=== PATIENT | male | born 1970 | race Caucasian/White ===

== ENCOUNTER 2016-12-22 17:22 | Emergency (ER) | payer OTHER ==
[2016-12-22 17:34] VITALS: BP 124/72; PULSE 88; RESP 18; TEMP 97.9
[2016-12-22] MEDS ORDERED: HYDROmorphone 1 MG/ML 1 ML SYRINGE IM STA (18:06)
--- NOTE | 2016-12-22 18:06 | ED ---
Back Pain HPI - General Chief Complaint: Back Pain/Injury Stated Complaint: strained muscle Time Seen by Provider: 12/22/16 17:49 Source: patient, RN notes reviewed Limitations: no limitations - History of Present Illness Initial Comments: Patient is a 46-year-old male chief complaint of lower groin pain for approximately 8 hours. Patient reports that he was flipping a coffee table and noticed a pulling sensation over his groin area. Patient reports that he has no testicular pain. He reports that he was seen in the [facility] earlier today was given one [place] while they're in a scrotal ultrasound. There is no evidence of hernia or testicular torsion. reports he also received x- rays and there were no acute process. Patient states that he does have chronic lower back pain. He reports that he has been able to have a bowel movement and urinate since the initial injury. He states the pain is worse with position and does not radiate down his legs.. He states that he is able to walk and denies any peripheral and saddle anesthesias. - Related Data Home Medications Medication Instructions Recorded Confirmed Omeprazole [PriLOSEC] 20 mg PO AC-BRKFST 12/14/15 04/20/16 Metoprolol Tartrate [Lopressor] 12.5 mg PO BID 04/20/16 04/20/16 Previous Rx's Medication Instructions Recorded Atorvastatin [Lipitor] 80 mg PO DAILY #30 tab 05/31/15 Clopidogrel [Plavix] 75 mg PO DAILY #30 tab 05/31/15 Lisinopril [Zestril] 2.5 mg PO DAILY #30 tab 05/31/15 Nitroglycerin Sl Tabs [Nitrostat] 0.4 mg SUBLINGUAL Q5M PRN #25 tab 05/31/15 ALPRAZolam [Xanax] 0.25 mg PO TID PRN #20 tab 12/14/15 PARoxetine [Paxil] 10 mg PO DAILY #30 tab 12/14/15 Allergies Allergy/AdvReac Type Severity Reaction Status Date / Time No Known Allergies Allergy Verified 12/22/16 18:19 Review of Systems ROS Statement: Those systems with pertinent positive or pertinent negative responses have been documented in the HPI. ROS Other: All systems not noted in ROS Statement are negative. Past Medical History Past Medical History: Coronary Artery Disease (CAD), Chest Pain / Angina, Myocardial Infarction ([place]) Additional Past Medical History / Comment(s): chronic back pain Last Myocardial Infarction Date:: 05/29/15 History of Any Multi-Drug Resistant Organisms: None Reported Past Surgical History: Heart Catheterization With Stent, Orthopedic Surgery Additional Past Surgical History / Comment(s): 05/29/15 PTCA with stent to LAD with angeoseal. 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 Past Anesthesia/Blood Transfusion Reactions: No Reported Reaction Date of Last Stent Placement:: 05/29/15 Past Psychological History: Anxiety Additional Psychological History / Comment(s): Pt resides with his girlfriend and children. He is independent. He does not have a license at this time. He has family/friends to drive him. He uses no assistive device or home care. Smoking Status: Current every day smoker Past Alcohol Use History: Occasional Additional Past Alcohol Use History / Comment(s): Pt states he drinks < 14 alcoholic beverages a week. He started smoking at age 20 yrs old and is less than a ppd smoker. Past Drug Use History: None Reported - Past Family History Father Family Medical History: Coronary Artery Disease (CAD), Myocardial Infarction ([place] ) Additional Family Medical History / Comment(s): Father has 2 coronary stents. Mother History Unknown: Yes General Exam - General Exam Comments Initial Comments: Patient is a 46-year-old male chief complaint of acute groin pain after lifting a coffee table. Patient is resting comfortably in bed. He doesn't appear to be in any acute distress. Limitations: no limitations General appearance: alert, in no apparent distress Head exam: Present: atraumatic, normocephalic, normal inspection Eye exam: Present: normal appearance, PERRL, EOMI. Absent: scleral icterus, conjunctival injection, periorbital swelling ENT exam: Present: normal exam, mucous membranes moist Neck exam: Present: normal inspection. Absent: tenderness, meningismus, lymphadenopathy Respiratory exam: Present: normal lung sounds bilaterally. Absent: respiratory distress, wheezes, rales, rhonchi, stridor Cardiovascular Exam: Present: regular rate, normal rhythm, normal heart sounds. Absent: systolic murmur, diastolic murmur, rubs, gallop, clicks GI/Abdominal exam: Present: soft, normal bowel sounds. Absent: distended, tenderness, guarding, rebound, rigid exam: Present: normal inspection, other (Patient has mild tenderness over bilateral areas of suprapubic bone ). Absent: testicular tenderness, urethral discharge, scrotal swelling, vertical testicular lie, circumcision Extremities exam: Present: normal inspection, full ROM, normal capillary refill. Absent: tenderness, pedal edema, joint swelling, calf tenderness Back exam: Present: normal inspection Neurological exam: Present: alert, oriented X3, CN II-XII intact Psychiatric exam: Present: normal affect, normal mood Skin exam: Present: warm, dry, intact, normal color. Absent: rash Course Vital Signs 12/22/16 17:30 Temperature 97.9 F Pulse Rate 88 Respiratory 18 Rate Blood Pressure 124/72 O2 Sat by Pulse 97 Oximetry Medical Decision Making - Medical Decision Making Patient is a 46-year-old male chief complaint of acute groin pain after lifting a coffee table. The treatment received an ultrasound [facility] [place] and was negative for any hernia or testicular torsion. Patient has no evidence of testicular tenderness. Patient also received x-rays negative for any acute process. Patient is tender to palpation over the suprapubic bone bilaterally. Patient's pain is likely related to a pulled muscle. He states that he received one [place] today. Patient will leave a urinalysis and the information was obtained from [facility]. The results are consistent with what the patient told us. Patient will be given 1 mg IM Dilaudid and advised to take the prescribed pain medication from earlier today. Patient is also advised follow-up with his primary care provider. Return parameters were discussed. 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 Patient was given the day off. - Lab Data Lab Results 12/22/16 Range/Units 18:03 Urine Color Light Yellow Urine Appearance Clear (Clear) Urine pH 6.0 (5.0-8.0) Ur Specific [place] 1.006 (1.001-1.035) Urine Protein Negative (Negative) Urine Glucose (UA) Negative (Negative) Urine Ketones Negative (Negative) Urine Blood Negative (Negative) Urine Nitrate Negative (Negative) Urine Bilirubin Negative (Negative) Urine Urobilinogen <2.0 (<2.0) mg/dL Ur Leukocyte Esterase Negative (Negative) Disposition Clinical Impression: Groin pain Disposition: HOME SELF-CARE Condition: Good Instructions: Acute Low Back Pain (ED) Additional Instructions: Patient advised to apply ice over the area. Take previously prescribed pain medication. Follow-up with primary care provider. Return to emergency department if any alarming signs or symptoms occur including numbness or tingling down the legs or unable to urinate. Referrals: Meghan Montano MD [Primary Care Provider] - 1-2 days Time of Disposition: 18:04
[2016-12-22 18:09] LABS: Appearance,Urine Clear (Clear); Bilirubin,Urine Negative (Negative); Glucose,Urine (UA) Negative (Negative); Ketones,Urine Negative (Negative); Leukocyte Esterase,Urine Negative (Negative); Nitrite,Urine Negative (Negative); Protein,Urine Negative (Negative); Specific Gravity,Urine 1.006 (1.001-1.035); UA Billing (MACRO vs. MICRO) CHEM; Urobilinogen,Urine <2.0 mg/dL (<2.0)
== END 2016-12-22 18:45 | disposition home or self-care (01) ==
LOC: EC 17:22
DX: R10.30 Lower abdominal pain, unspecified (principal); M54.5 Low back pain; M79.604 Pain in right leg; M79.605 Pain in left leg; I25.10 Atherosclerotic heart disease of native coronary artery without angina pectoris; I25.2 Old myocardial infarction; G89.29 Other chronic pain; F17.200 Nicotine dependence, unspecified, uncomplicated; Z79.899 Other long term (current) drug therapy; Z95.5 Presence of coronary angioplasty implant and graft
CPT/HCPCS: 81003; 99284; 96372; J1170

== ENCOUNTER 2016-12-24 15:29 | Emergency (ER) | payer OTHER ==
[2016-12-24] MEDS ORDERED: KETOROLAC 60 MG/2 ML VIAL IM STA (17:06)
[2016-12-24] MEDS ORDERED: ORPHENADRINE 30 MG/ML 2 ML VIAL IM STA (17:06)
[2016-12-24] MEDS ORDERED: HYDROmorphone 1 MG/ML 1 ML SYRINGE IM STA (17:06)
--- NOTE | 2016-12-24 17:26 | ED ---
Back Pain HPI - General Chief Complaint: Back Pain/Injury Stated Complaint: Back pain-[facility] Time Seen by Provider: 12/24/16 16:31 Source: patient, RN notes reviewed Limitations: no limitations - History of Present Illness Initial Comments: Patient is a 46-year-old male with chief complaint of groin pain and lower back pain for approximately 2 days. Patient reports this occurred at work while he was lifting a coffee table. Patient reports that he was seen by [facility]. Patient has had testicular ultrasound, lumbar xrays after initial injury which are negative for any acute process. Patient reports that he is still complaining of inguinal pain not managed by a current narcotic pain medications. He had no trouble urinating or bowel movement. Patient was seen by [facility] and they stated they want a further diagnostic studies of the lumbar spine with a history of trauma his back few weeks ago. Patient reports that the pain will radiate from his abdomen to his lumbar spine. He is tender over bilateral inguinal region, denies testicular tenderness. - Related Data Home Medications Medication Instructions Recorded Confirmed Omeprazole [PriLOSEC] 20 mg PO AC-BRKFST 12/14/15 04/20/16 Metoprolol Tartrate [Lopressor] 12.5 mg PO BID 04/20/16 04/20/16 Previous Rx's Medication Instructions Recorded Atorvastatin [Lipitor] 80 mg PO DAILY #30 tab 05/31/15 Clopidogrel [Plavix] 75 mg PO DAILY #30 tab 05/31/15 Lisinopril [Zestril] 2.5 mg PO DAILY #30 tab 05/31/15 Nitroglycerin Sl Tabs [Nitrostat] 0.4 mg SUBLINGUAL Q5M PRN #25 tab 05/31/15 ALPRAZolam [Xanax] 0.25 mg PO TID PRN #20 tab 12/14/15 PARoxetine [Paxil] 10 mg PO DAILY #30 tab 12/14/15 Atorvastatin [Lipitor] 80 mg PO DAILY #20 tab 12/24/16 Clopidogrel [Plavix] 75 mg PO DAILY #20 tablet 12/24/16 HYDROcodone/APAP 10-325MG [[place] 1 tab PO Q6H PRN #20 tab 12/24/16 10-325] Lisinopril [Zestril] 2.5 mg PO DAILY #20 tab 03/16/17 Metoprolol Tartrate [Lopressor] 12.5 mg PO BID #40 dose 12/24/16 Allergies Allergy/AdvReac Type Severity Reaction Status Date / Time No Known Allergies Allergy Verified 12/24/16 15:44 Review of Systems ROS Statement: Those systems with pertinent positive or pertinent negative responses have been documented in the HPI. ROS Other: All systems not noted in ROS Statement are negative. Past Medical History Past Medical History: Coronary Artery Disease (CAD), Chest Pain / Angina, Myocardial Infarction ([place]) Additional Past Medical History / Comment(s): chronic back pain Last Myocardial Infarction Date:: 05/29/15 History of Any Multi-Drug Resistant Organisms: None Reported Past Surgical History: Heart Catheterization With Stent, Orthopedic Surgery Additional Past Surgical History / Comment(s): 05/29/15 PTCA with stent to LAD with angeoseal. 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 Past Anesthesia/Blood Transfusion Reactions: No Reported Reaction Date of Last Stent Placement:: 05/29/15 Past Psychological History: Anxiety Additional Psychological History / Comment(s): Pt resides with his girlfriend and children. He is independent. He does not have a license at this time. He has family/friends to drive him. He uses no assistive device or home care. Smoking Status: Current every day smoker Past Alcohol Use History: Occasional Additional Past Alcohol Use History / Comment(s): Pt states he drinks < 14 alcoholic beverages a week. He started smoking at age 20 yrs old and is less than a ppd smoker. Past Drug Use History: None Reported - Past Family History Father Family Medical History: Coronary Artery Disease (CAD), Myocardial Infarction ([place] ) Additional Family Medical History / Comment(s): Father has 2 coronary stents. Mother History Unknown: Yes General Exam - General Exam Comments Initial Comments: Pleasant 46 year old male, no distress. Limitations: no limitations General appearance: alert, in no apparent distress Head exam: Present: atraumatic, normocephalic, normal inspection Eye exam: Present: normal appearance ENT exam: Present: normal exam, mucous membranes moist Neck exam: Present: normal inspection. Absent: tenderness, meningismus, lymphadenopathy Respiratory exam: Present: normal lung sounds bilaterally. Absent: respiratory distress, wheezes, rales, rhonchi, stridor Cardiovascular Exam: Present: regular rate, normal rhythm, normal heart sounds. Absent: systolic murmur, diastolic murmur, rubs, gallop, clicks GI/Abdominal exam: Present: soft, normal bowel sounds. Absent: distended, tenderness, guarding, rebound, rigid Extremities exam: Present: normal inspection, full ROM, normal capillary refill , other (right arm amputee). Absent: tenderness, pedal edema, joint swelling, calf tenderness Back exam: Present: normal inspection, full ROM, muscle spasm (abdominal muscle spasm), vertebral tenderness (lumbar vertebral spinal tenderness) Neurological exam: Present: alert, oriented X3, CN II-XII intact, normal gait Psychiatric exam: Present: normal affect, normal mood Skin exam: Present: warm, dry, intact, normal color. Absent: rash Course Vital Signs 12/24/16 12/24/16 15:40 18:15 Temperature 97.8 F 98.7 F Pulse Rate 98 88 Respiratory 16 18 Rate Blood Pressure 112/59 112/73 O2 Sat by Pulse 99 98 Oximetry Medical Decision Making - Medical Decision Making Patient is a 46-year-old male complaining of lower back pain. He states that it radiates up towards his groin and will rotate from back and forth from his groin to his lower back. Patient states he's had normal urination and bowel movements. He states he is able to walk. 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 He denies any nausea vomiting or constipation. Patient will be given a CT of the lumbar spine as x-rays apparently negative as far. He has no testicular tenderness for a repeat testicular ultrasound. He complains of no chest pain or shortness of breath. Patient is currently taking 5 mg of [place] every 4-6 hours as well as Robaxin.Minimally displaced left transverse process fracture of L1. New central disc herniation with 5 mm caudal extension of L5 through S1 cream mild spinal canal stenosis. No neural foraminal narrowing. New broad disc bulge creating spinal canal stenosis L2 through L3. Patient given Rx for pain medication and patient requests refills for cardiac medication. Patient will be given short refills. Patient given referral to orthopedic and order for lumbar spine MRI. - Radiology Data Radiology results: report reviewed Minimally displaced left transverse process fracture of L1. New central disc herniation with 5 mm caudal extension of L5 through S1 cream mild spinal canal stenosis. No neural foraminal narrowing. New broad disc bulge creating spinal canal stenosis L2 through L3. Disposition Clinical Impression: Lumbar back sprain, Abdominal wall strain, Fracture of transverse process of lumbar vertebra, Lumbar herniated disc Disposition: HOME SELF-CARE Condition: Good Instructions: Acute Low Back Pain (ED) Additional Instructions: Patient advised to take further pain medication as needed. Also follow-up with primary care provider. 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 Also patient is going to need to schedule an MRI for the lumbar spine. Prescriptions: Atorvastatin [Lipitor] 80 mg PO DAILY #20 tab Clopidogrel [Plavix] 75 mg PO DAILY #20 tablet HYDROcodone/APAP 10-325MG [[place] 10-325] 1 tab PO Q6H PRN #20 tab PRN Reason: Pain Lisinopril [Zestril] 2.5 mg PO DAILY #20 tab Metoprolol Tartrate [Lopressor] 12.5 mg PO BID #40 dose Referrals: Meghan Montano MD [Primary Care Provider] - 1-2 days King Valle DO [Doctor of Osteopathic Medicine] - 1-2 days Time of Disposition: 17:30
--- NOTE | 2016-12-24 17:47 | CT ---
EXAMINATION TYPE: CT lumbar spine wo con DATE OF EXAM: 12/24/2016 5:18 PM COMPARISON: MRI of the lumbar spine dated 07/25/2015. HISTORY: Back injury 2 days ago. Low back pain with numbness and tingling down both legs. CT DLP: 974.00 mGycm Automated exposure control for dose reduction was used. Unenhanced CT of the lumbar spine was performed. Bone and soft tissue window settings are submitted as well as coronal and sagittal reconstructions. There is a minimally displaced fracture of the left transverse process of L1 L1-L2: Normal disc space height. No disc herniation protrusion or central stenosis. No facet joint arthropathy. No evidence for foraminal encroachment. L2-L3: There is a broad based disc bulge with impression anteriorly along the ventral thecal sac. Mil d bilateral neural foraminal narrowing is noted. This is new in comparison to the prior MRI of the gamaliel mbar spine. L3-L4: Normal disc space height. No disc herniation protrusion or central stenosis. No facet joint arthropathy. No evidence for foraminal encroachment. L4-L5: Normal disc space height. No disc herniation protrusion or central stenosis. No facet joint arthropathy. No evidence for foraminal encroachment. L5-S1: In comparison to the prior MRI of the lumbar spine there is a new central disc herniation with extrusion 5 mm caudally and impression upon the ventral thecal sac creating mild spinal canal stenos is at this level. No evidence of neuroforaminal narrowing. IMPRESSION: 1. Minimally displaced left transverse process fracture of L1. 2. New central disc herniation with 5 mm caudal extrusion at L5-S1 creating mild spinal canal stenosi s. No neural foraminal narrowing. 3. New broad-based disc bulge creating mild spinal canal stenosis at L2-L3.
[2016-12-24 18:34] VITALS: BP 112/73; PULSE 88; RESP 18; TEMP 98.7
== END 2016-12-24 18:15 | disposition home or self-care (01) ==
LOC: EC 15:29
DX: S32.019A Unspecified fracture of first lumbar vertebra, initial encounter for closed fracture (principal); M51.26 Other intervertebral disc displacement, lumbar region; S39.011A Strain of muscle, fascia and tendon of abdomen, initial encounter; X50.0XXA Overexertion from strenuous movement or load, initial encounter; Y99.0 Civilian activity done for income or pay
CPT/HCPCS: 72131; 99283; 96372 ×3; J2360; J1885; J1170

== ENCOUNTER 2017-04-17 23:00 | Emergency (ER) | payer OTHER ==
[2017-04-17] MEDS ORDERED: SODIUM CHLORIDE 0.9% 500 ML IV STA (23:03)
[2017-04-17] MEDS ORDERED: MORPHINE SULFATE 4 MG/ML SYRINGE IV STA (23:03)
[2017-04-17 23:08] VITALS: RESP 18
[2017-04-17] MEDS ORDERED: ACETAMINOPHEN IV (For NPO) 1,000 MG in EMPTY BAG 1 BAG IVPB STA (23:11)
[2017-04-17] MEDS ORDERED: HYDROmorphone 1 MG/ML 1 ML SYRINGE IVP STA (23:11)
[2017-04-17] MEDS ORDERED: LORazepam 2 MG/ML SYRINGE IV STA (23:11)
[2017-04-17] MEDS ORDERED: KETOROLAC 30 MG/ML 1 ML VIAL IVP STA (23:11)
[2017-04-17 23:17] LABS: Basophils % (A) 0 %; CH 34.1; CHCM 36.6; Eosinophils # (A) 0.2 k/uL (0-0.7); Eosinophils % (A) 3 %; HCT 41.3 % (39.0-53.0); HDW 2.49; HGB 14.8 gm/dL (13.0-17.5); Luc # (Auto) 0.15; Luc % (Auto) 2; Lymphocytes # (A) 1.7 k/uL (1.0-4.8); Lymphocytes % (A) 19 %; MCH 33.5 pg (25.0-35.0); MCHC 35.8 g/dL (31.0-37.0); MCV 93.5 fL (80.0-100.0); Monocytes # (A) 0.6 k/uL (0-1.0); Monocytes % (A) 7 %; Neutrophils # (A) 5.9 k/uL (1.3-7.7); Neutrophils % (A) 69 %; RBC 4.42 m/uL (4.30-5.90); WBC 8.5 k/uL (3.8-10.6); WBC (Perox) 8.88
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
[2017-04-17 23:30] LABS: Prothrombin Time 10.5 sec (9.0-12.0)
[2017-04-17 23:36] LABS: ALT 46 U/L (21-72); AST 30 U/L (17-59); Alkaline Phosphatase 74 U/L (38-126); Anion Gap 15 mmol/L; Blood Urea Nitrogen 10 mg/dL (9-20); Calcium 8.7 mg/dL (8.4-10.2); Carbon Dioxide 23 mmol/L (22-30); Chloride 105 mmol/L (98-107); Glucose 113 mg/dL (74-99); Magnesium 2.2 mg/dL (1.6-2.3); Non-African American GFR(MDRD) >60 (>60 ml/min/1.73 sqM); Potassium 3.4 mmol/L (3.5-5.1); Sodium 143 mmol/L (137-145); Total Bilirubin 1.1 mg/dL (0.2-1.3); Total Protein 6.7 g/dL (6.3-8.2)
[2017-04-17 23:41] LABS: Creatine Kinase 411 U/L (55-170)
[2017-04-17 23:47] LABS: Alcohol 162 mg/dL
[2017-04-17 23:53] LABS: Creatine Kinase MB 1.7 ng/mL (0.0-2.4); Troponin I <0.012 ng/mL (0.000-0.034)
[2017-04-18 00:13] LABS: Partial Thromboplastin Time 21.2 sec (22.0-30.0)
[2017-04-18 00:16] VITALS: BP 111/69; PULSE 78; TEMP 98
--- NOTE | 2017-04-18 00:19 | XR ---
EXAM: XR Chest, 2 Views CLINICAL HISTORY: Reason: Chest Pain TECHNIQUE: Frontal and lateral views of the chest. COMPARISON: Chest radiograph on 01/03/2016 FINDINGS: Lungs/pleura: Stable minimal elevation of the right hemidiaphragm. No focal consolidation. No pleural effusion or pneumothorax. Heart/mediastinum: Normal. No cardiomegaly. Soft tissues: Unremarkable. Bones: No acute fracture. Upper abdomen: Normal. IMPRESSION: No acute disease.
== END 2017-04-18 00:16 | disposition home or self-care (01) ==
LOC: EC 23:00
DX: F10.129 Alcohol abuse with intoxication, unspecified (principal); F41.8 Other specified anxiety disorders; R00.0 Tachycardia, unspecified; F17.200 Nicotine dependence, unspecified, uncomplicated; I25.2 Old myocardial infarction; Z79.899 Other long term (current) drug therapy; Z95.5 Presence of coronary angioplasty implant and graft; Z86.79 Personal history of other diseases of the circulatory system; Z82.49 Family history of ischemic heart disease and other diseases of the circulatory system
CPT/HCPCS: 36415; 71020; 80053; 80320; 82550; 82553; 83690; 83735; 84484; 85025; 85610; 85730; 93005; 96360; 99285

== ENCOUNTER → 2017-04-21 | Outpatient (CLI) | payer OTHER ==
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
== END | disposition home or self-care (01) ==
LOC: RADCTMAIN 06:45
PROVIDERS: ATTEND Internal Medicine
DX: R51 Headache (principal); S09.90XA Unspecified injury of head, initial encounter
CPT/HCPCS: 70450

== ENCOUNTER 2017-05-01 01:53 | Emergency (ER) | payer OTHER ==
[2017-05-01 02:03] VITALS: BP 130/86; PULSE 84; RESP 18; TEMP 98.5
[2017-05-01] MEDS ORDERED: KETOROLAC 60 MG/2 ML VIAL IM STA (02:32)
[2017-05-01] MEDS ORDERED: ACET/COD 300 MG/30 MG STARTER PACK 6 TAB BTL PO STA (02:38)
--- NOTE | 2017-05-01 02:38 | ED ---
General Adult HPI - General Chief complaint: Skin/Abscess/Foreign Body Stated complaint: sunburn Time Seen by Provider: 05/01/17 02:00 Source: patient, RN notes reviewed Mode of arrival: ambulatory Limitations: no limitations - History of Present Illness Initial comments: This is a 46-year-old male who presents emergency Department complaining of a sunburn. Patient states he was out in the sun today working and didn't have a shirt on and he was to put the shirt on. Patient denies any other injury or complaint today. - Related Data Home Medications Medication Instructions Recorded Confirmed Omeprazole [PriLOSEC] 20 mg PO AC-BRKFST 12/14/15 04/20/16 Metoprolol Tartrate [Lopressor] 12.5 mg PO BID 04/20/16 04/20/16 Previous Rx's Medication Instructions Recorded Atorvastatin [Lipitor] 80 mg PO DAILY #30 tab 05/31/15 Clopidogrel [Plavix] 75 mg PO DAILY #30 tab 05/31/15 Lisinopril [Zestril] 2.5 mg PO DAILY #30 tab 05/31/15 Nitroglycerin Sl Tabs [Nitrostat] 0.4 mg SUBLINGUAL Q5M PRN #25 tab 05/31/15 ALPRAZolam [Xanax] 0.25 mg PO TID PRN #20 tab 12/14/15 PARoxetine [Paxil] 10 mg PO DAILY #30 tab 12/14/15 Atorvastatin [Lipitor] 80 mg PO DAILY #20 tab 12/24/16 Clopidogrel [Plavix] 75 mg PO DAILY #20 tablet 12/24/16 HYDROcodone/APAP 10-325MG [[place] 1 tab PO Q6H PRN #20 tab 12/24/16 10-325] Lisinopril [Zestril] 2.5 mg PO DAILY #20 tab 12/24/16 Metoprolol Tartrate [Lopressor] 12.5 mg PO BID #40 dose 12/24/16 Acetaminophen with Codeine 1 each PO Q4H #20 tab 05/01/17 [Tylenol w/codeine #3] Cephalexin [Keflex] 500 mg PO Q6HR #20 cap 05/01/17 Ibuprofen [Motrin] 600 mg PO Q6HR PRN #20 tab 05/01/17 Allergies Allergy/AdvReac Type Severity Reaction Status Date / Time No Known Allergies Allergy Verified 05/01/17 02:03 Review of Systems ROS Statement: Those systems with pertinent positive or pertinent negative responses have been documented in the HPI. ROS Other: All systems not noted in ROS Statement are negative. Past Medical History Past Medical History: Coronary Artery Disease (CAD), Chest Pain / Angina, Myocardial Infarction ([place]) Additional Past Medical History / Comment(s): chronic back pain Last Myocardial Infarction Date:: 05/29/15 History of Any Multi-Drug Resistant Organisms: None Reported Past Surgical History: Heart Catheterization With Stent, Orthopedic Surgery Additional Past Surgical History / Comment(s): 05/29/15 PTCA with stent to LAD with angeoseal. 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 Past Anesthesia/Blood Transfusion Reactions: No Reported Reaction Date of Last Stent Placement:: 05/29/15 Past Psychological History: Anxiety Smoking Status: Current some day smoker Past Alcohol Use History: Occasional Past Drug Use History: Marijuana - Past Family History Father Family Medical History: Coronary Artery Disease (CAD), Myocardial Infarction ([place] ) Additional Family Medical History / Comment(s): Father has 2 coronary stents. Mother History Unknown: Yes General Exam - General Exam Comments Initial Comments: GENERAL Patient is well-developed and well-nourished. Patient is in mild distress. EYES Patient's pupils are equal and round. Extraocular motion is intact SKIN Patient has a sunburn on his whole back and in the upper back he has second- degree uribe the blisters ruptured this point. NEURO The patient is alert and oriented 3 PYSCH Patient has normal interpersonal interactions. MUSCULOSKELETAL Patient has an amputated right hand Limitations: no limitations Course Vital Signs 05/01/17 02:01 Temperature 98.5 F Pulse Rate 84 Respiratory 18 Rate Blood Pressure 130/86 O2 Sat by Pulse 99 Oximetry Disposition Clinical Impression: Sunburn of second degree Disposition: HOME SELF-CARE Condition: Good Instructions: Sunburn (ED) Additional Instructions: Patient should apply Silvadene twice a day. Patient's take Motrin every 6 hours. Patient states Keflex as prescribed. Prescriptions: Acetaminophen with Codeine [Tylenol w/codeine #3] 1 each PO Q4H #20 tab Cephalexin [Keflex] 500 mg PO Q6HR #20 cap Ibuprofen [Motrin] 600 mg PO Q6HR PRN #20 tab PRN Reason: For pain Referrals: Meghan Montano MD [Primary Care Provider] - 1-2 days Time of Disposition: 02:36
== END 2017-05-01 02:49 | disposition home or self-care (01) ==
LOC: EC 01:53
DX: L55.1 Sunburn of second degree (principal); I25.10 Atherosclerotic heart disease of native coronary artery without angina pectoris; I25.2 Old myocardial infarction; F17.200 Nicotine dependence, unspecified, uncomplicated; Z89.111 Acquired absence of right hand; Z95.5 Presence of coronary angioplasty implant and graft; Z79.899 Other long term (current) drug therapy
CPT/HCPCS: 99283; 16020; 96372; J1885

== ENCOUNTER → 2018-08-03 | Outpatient (CLI) | payer OTHER ==
--- NOTE | 2018-08-03 09:31 | MR ---
EXAMINATION TYPE: MR lumbar spine wo con DATE OF EXAM: 08/03/2018 COMPARISON: 07/25/2016 HISTORY: 48-year-old male Low back pain TECHNIQUE: Multiplanar, multisequence images of the lumbar spine were acquired. Findings: Vertebral body heights are preserved and alignment is maintained. Vertebral mild disc desiccation and bulging disks throughout. Disc bulge at L2-L3 is slightly larger with more impression on the ventral thecal sac. Redemonstrated Modic type II fatty endplate change anteriorly at T12 but new at L2-L3. Facet arthropathy mid to lower lumbar spine. Conus medullaris is normal. No prevertebral paravertebral soft tissue abnormality seen. At T12-L1, no canal or foraminal stenosis. At L1-L2, no canal or foraminal stenosis. At L2-L3, increased diffuse disc bulge impressing on the ventral thecal sac but not causing significa nt spinal canal or foraminal stenosis. At L3-L4, there is diffuse disc bulge, increased in size laterally. This may have mass effect on to t he extraforaminal bilateral exited L3 nerve roots. Minimal bilateral inferior foraminal narrowing. At L4-L5, facet arthropathy without significant canal or foraminal stenosis. At L5-S1, no significant canal or foraminal stenosis. IMPRESSION: 1. Mild multilevel degenerative disc disease. Facet arthropathy mid to lower lumbar spine. 2. Degenerative disc disease shows some interval worsening at L2-L3 and L3-L4 with greater disc desic cation and disc bulging. 3. At L2-L3, disc bulge causes ventral impression on the thecal sac without spinal canal stenosis. 4. At L3-L4, lateral bulging components are increased and may have mass effect on the bilateral exite d, extraforaminal L3 nerve roots.
== END ==
LOC: RADMRIMAIN 07:47
PROVIDERS: ATTEND Psychiatry & Neurology Neurology
DX: M51.26 Other intervertebral disc displacement, lumbar region (principal); M51.36 Other intervertebral disc degeneration, lumbar region; M46.96 Unspecified inflammatory spondylopathy, lumbar region; Z88.1 Allergy status to other antibiotic agents
CPT/HCPCS: 72148

== ENCOUNTER 2019-01-24 10:35 | Emergency (ER) | payer OTHER ==
[2019-01-24] MEDS ORDERED: HYDROcodone/APAP 5-325MG 1 EACH TAB PO STA (10:45)
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
--- NOTE | 2019-01-24 12:33 | XR ---
EXAM TYPE: LUMBAR SPINE X RAY SERIES COMPARISON: NONE HISTORY: Pain TECHNIQUE: 4 views are submitted. FINDINGS: Alignment is anatomic. The pedicles are intact. The transverse processes are intact. There is no s pondylolysis or spondylolisthesis. Spina bifida occulta lumbosacral junction. Hypertrophic changes a re seen of the vertebral column anteriorly. There is a superior endplate deformity T12. IMPRESSION: 1. Superior endplate compression deformity T12 appears slightly progressed relative to the prior CT s can 12/24/2016. Correlate clinically.
[2019-01-24 13:01] VITALS: BP 127/89; PULSE 77; RESP 16; TEMP 98
== END 2019-01-24 13:00 | disposition home or self-care (01) ==
LOC: EC 10:35
DX: S22.089A Unspecified fracture of T11-T12 vertebra, initial encounter for closed fracture (principal); I25.10 Atherosclerotic heart disease of native coronary artery without angina pectoris; I25.2 Old myocardial infarction; F17.200 Nicotine dependence, unspecified, uncomplicated; Z98.61 Coronary angioplasty status; Z98.890 Other specified postprocedural states; Z89.111 Acquired absence of right hand; Z79.899 Other long term (current) drug therapy; W54.8XXA Other contact with dog, initial encounter; W18.39XA Other fall on same level, initial encounter
CPT/HCPCS: 72110; 99283

== ENCOUNTER 2019-04-11 11:15 | Emergency (ER) | payer OTHER ==
[2019-04-11] MEDS ORDERED: ORPHENADRINE 30 MG/ML 2 ML VIAL IM STA (12:15)
[2019-04-11] MEDS ORDERED: KETOROLAC 60 MG/2 ML VIAL IM STA (12:15)
[2019-04-11] MEDS ORDERED: ACET/COD 300 MG/30 MG STARTER PACK 6 TAB BTL PO STA (12:15)
--- NOTE | 2019-04-11 12:48 | XR ---
Lumbar spine HISTORY: Pain, trauma last night 3 views of the lumbar spine correlated to prior exam dated 01/24/2019 Spina bifida occulta is present at S1. Lumbar vertebral bodies show preserved height and alignment. B one mineralization is normal. Disc spaces are maintained. IMPRESSION: No acute fracture or subluxation.
--- NOTE | 2019-04-11 12:51 | ED ---
Back Pain HPI - General Chief Complaint: Back Pain/Injury Stated Complaint: back pain Time Seen by Provider: 04/11/19 11:33 Source: patient, RN notes reviewed, old records reviewed Limitations: no limitations - History of Present Illness Initial Comments: Patient's a 48 [place] since returned today with lower back pain and strain after he tripped over a sidewalk twisted his back. Patient states that his history of degenerative disease. He denies saddle anesthesias. He seek and ibuprofen without relief pain. Denies any associated chest pain, stress breath, or abdominal pain. Denies any change in urination or bowel habits. - Related Data Home Medications Medication Instructions Recorded Confirmed Omeprazole [PriLOSEC] 20 mg PO AC-BRKFST 12/14/15 04/11/19 Metoprolol Tartrate [Lopressor] 12.5 mg PO BID 04/11/19 04/11/19 Previous Rx's Medication Instructions Recorded Nitroglycerin Sl Tabs [Nitrostat] 0.4 mg SUBLINGUAL Q5M PRN #25 tab 05/31/15 PARoxetine [Paxil] 10 mg PO DAILY #30 tab 12/14/15 Atorvastatin [Lipitor] 80 mg PO DAILY #20 tab 12/24/16 Clopidogrel [Plavix] 75 mg PO DAILY #20 tablet 12/24/16 Lisinopril [Zestril] 2.5 mg PO DAILY #20 tab 12/24/16 Cyclobenzaprine [Flexeril] 10 mg PO TID #12 tab 04/11/19 Dexamethasone 0.75 mg PO DAILY #12 tab 04/11/19 Ketorolac [Toradol] 10 mg PO Q6HR #12 tab 04/11/19 Allergies Allergy/AdvReac Type Severity Reaction Status Date / Time No Known Allergies Allergy Verified 04/11/19 11:39 Review of Systems ROS Statement: Those systems with pertinent positive or pertinent negative responses have been documented in the HPI. ROS Other: All systems not noted in ROS Statement are negative. Past Medical History Past Medical History: Coronary Artery Disease (CAD), Chest Pain / Angina, My ocardial Infarction (SD) Additional Past Medical History / Comment(s): chronic back pain Last Myocardial Infarction Date:: 05/29/15 History of Any Multi-Drug Resistant Organisms: None Reported Past Surgical History: Heart Catheterization With Stent, Orthopedic Surgery Additional Past Surgical History / Comment(s): 05/29/15 PTCA with stent to LAD with angeoseal. 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 Past Anesthesia/Blood Transfusion Reactions: No Reported Reaction Date of Last Stent Placement:: 05/29/15 Past Psychological History: Anxiety Smoking Status: Current every day smoker Past Alcohol Use History: Occasional Past Drug Use History: None Reported, Marijuana - Past Family History Father Family Medical History: Coronary Artery Disease (CAD), Myocardial Infarction (SD) Additional Family Medical History / Comment(s): Father has 2 coronary stents. Mother History Unknown: Yes General Exam Limitations: no limitations General appearance: alert, in no apparent distress Head exam: Present: atraumatic, normocephalic, normal inspection Eye exam: Present: normal appearance, PERRL, EOMI. Absent: scleral icterus, conjunctival injection, periorbital swelling ENT exam: Present: normal exam, mucous membranes moist Neck exam: Present: normal inspection. Absent: tenderness, meningismus, lymphadenopathy Respiratory exam: Present: normal lung sounds bilaterally, respiratory distress Cardiovascular Exam: Present: regular rate, normal rhythm, normal heart sounds. Absent: systolic murmur, diastolic murmur, rubs, gallop, clicks GI/Abdominal exam: Present: soft, normal bowel sounds. Absent: distended, tenderness, guarding, rebound, rigid Extremities exam: Present: normal inspection, full ROM, normal capillary refill. Absent: tenderness, pedal edema, joint swelling, calf tenderness Back exam: Present: normal inspection, other (tender over lumbar spine and paraspinal tenderness. ) Neurological exam: Present: alert, oriented X3, CN II-XII intact Psychiatric exam: Present: normal affect, normal mood Skin exam: Present: warm, dry, intact, normal color. Absent: rash Course Vital Signs 04/11/19 04/11/19 11:29 13:00 Temperature 98.6 F 98.3 F Pulse Rate 80 68 Respiratory 18 16 Rate Blood Pressure 113/77 107/80 O2 Sat by Pulse 99 98 Oximetry Medical Decision Making - Medical Decision Making Patient is a 48 male with lower back strain. Patient reorts he twisted on sidewalk patient given IM Toradol and Norflex. Given a starter pack for pain medication. X-ray shows no acute fracture dislocation. Discussed alternating heat and ice over the back. Discussed return parameters. - Radiology Data Radiology results: report reviewed Lumbar sspine has no fracture or dislocation. Disposition Clinical Impression: Lumbar back sprain Disposition: HOME SELF-CARE Condition: Good Instructions (If sedation given, give patient instructions): Acute Low Back Pain (ED) Additional Instructions: Patient has close follow-up with clinical specialist, take muscle actions and anti-inflammatory medicine as prescribed. Prescriptions: Dexamethasone 0.75 mg PO DAILY #12 tab Cyclobenzaprine [Flexeril] 10 mg PO TID #12 tab Ketorolac [Toradol] 10 mg PO Q6HR #12 tab Is patient prescribed a controlled substance at d/c from ED?: No Referrals: Meghan Montano MD [Primary Care Provider] - 1-2 days Time of Disposition: 12:52
[2019-04-11 13:05] VITALS: BP 107/80; PULSE 68; RESP 16; TEMP 98.3
== END 2019-04-11 13:00 | disposition home or self-care (01) ==
LOC: EC 11:15
DX: S33.5XXA Sprain of ligaments of lumbar spine, initial encounter (principal); R06.03 Acute respiratory distress; I25.119 Atherosclerotic heart disease of native coronary artery with unspecified angina pectoris; I25.2 Old myocardial infarction; F17.200 Nicotine dependence, unspecified, uncomplicated; Z79.899 Other long term (current) drug therapy; Z87.39 Personal history of other diseases of the musculoskeletal system and connective tissue; Z95.5 Presence of coronary angioplasty implant and graft; X50.1XXA Overexertion from prolonged static or awkward postures, initial encounter; Y92.480 Sidewalk as the place of occurrence of the external cause
CPT/HCPCS: 72100; 99284; 96372 ×2; J2360; J1885

== ENCOUNTER 2022-03-20 11:08 | Emergency (ER) | payer OTHER ==
[2022-03-20 11:34] VITALS: RESP 18
[2022-03-20] MEDS ORDERED: SODIUM CHLORIDE 0.9% 500 ML 500 ML IV STA (11:35)
[2022-03-20] MEDS ORDERED: ASPIRIN 81 MG PO STA (11:35)
[2022-03-20] MEDS ORDERED: NITROGLYCERIN SL TABS 0.4 MG TAB SUBLINGUAL STA (11:35)
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
[2022-03-20 12:04] LABS: Basophils % (A) 0 %; Eosinophils # (A) 0.1 k/uL (0-0.7); Eosinophils % (A) 1 %; HCT 43.3 % (39.0-53.0); HGB 14.5 gm/dL (13.0-17.5); Lymphocytes # (A) 0.9 k/uL (1.0-4.8); Lymphocytes % (A) 12 %; MCH 32.7 pg (25.0-35.0); MCHC 33.6 g/dL (31.0-37.0); MCV 97.4 fL (80.0-100.0); Mean Platelet Volume 7.8; Monocytes # (A) 0.3 k/uL (0-1.0); Monocytes % (A) 4 %; Neutrophils # (A) 6.6 k/uL (1.3-7.7); Neutrophils % (A) 82 %; Platelet Count 302 k/uL (150-450); RBC 4.45 m/uL (4.30-5.90); RDW 12.7 % (11.5-15.5); WBC 8.1 k/uL (3.8-10.6)
[2022-03-20 12:16] LABS: INR 0.9 (<1.2); Partial Thromboplastin Time 22.9 sec (22.0-30.0); Prothrombin Time 9.8 sec (9.0-12.0)
[2022-03-20 12:28] LABS: ALT 19 U/L (4-49); AST 27 U/L (17-59); African American GFR (CKD) >90 (>60 ml/min/1.73 sqM); Albumin 4.3 g/dL (3.5-5.0); Alkaline Phosphatase 90 U/L (38-126); Anion Gap 5 mmol/L; Blood Urea Nitrogen 16 mg/dL (9-20); Carbon Dioxide 25 mmol/L (22-30); Chloride 108 mmol/L (98-107); Glucose 99 mg/dL (74-99); Magnesium 2.3 mg/dL (1.6-2.3); Non-African American GFR(CKD) >90 (>60 ml/min/1.73 sqM); Potassium 4.1 mmol/L (3.5-5.1); Sodium 138 mmol/L (137-145); Total Bilirubin 0.6 mg/dL (0.2-1.3); Total Protein 7.1 g/dL (6.3-8.2)
--- NOTE | 2022-03-20 12:39 | XR ---
EXAMINATION TYPE: XR chest 2V DATE OF EXAM: 03/20/2022 COMPARISON: 04/17/2017 INDICATION: Chest pain TECHNIQUE: Frontal and lateral views of the chest are obtained. FINDINGS: The heart size is normal. The pulmonary vasculature is normal. Ill-defined nodularity may be at the right lower lung field. This could be related to summation densi ty and rib end. Consider short-term follow-up in 3 months. No suspicious focal consolidations are el dent. IMPRESSION: 1. Possible small nodularity right lung base. Follow-up chest x-ray in 3 months is recommended.
[2022-03-20 13:24] VITALS: BP 110/72; PULSE 92; TEMP 98.3
== END 2022-03-20 13:24 | disposition home or self-care (01) ==
LOC: EC 11:08
DX: R07.9 Chest pain, unspecified (principal); F17.210 Nicotine dependence, cigarettes, uncomplicated; I25.10 Atherosclerotic heart disease of native coronary artery without angina pectoris; I25.2 Old myocardial infarction; F41.9 Anxiety disorder, unspecified; Z72.89 Other problems related to lifestyle; F12.90 Cannabis use, unspecified, uncomplicated
CPT/HCPCS: 36415; 71046; 80053; 83735; 84484; 85025; 85610; 85730; 93005; 96360; 99285

== ENCOUNTER 2022-12-25 15:34 | Emergency (ER) | payer OTHER ==
[2022-12-25 15:47] VITALS: TEMP 98.7
[2022-12-25 16:31] LABS: Basophils % (A) 0 %; Eosinophils # (A) 0.1 k/uL (0-0.7); Eosinophils % (A) 3 %; HCT 43.3 % (39.0-53.0); Lymphocytes # (A) 0.4 k/uL (1.0-4.8); Lymphocytes % (A) 12 %; MCH 32.5 pg (25.0-35.0); MCHC 34.7 g/dL (31.0-37.0); MCV 93.7 fL (80.0-100.0); Mean Platelet Volume 7.6; Monocytes # (A) 0.3 k/uL (0-1.0); Monocytes % (A) 9 %; Neutrophils # (A) 2.6 k/uL (1.3-7.7); Neutrophils % (A) 74 %; Platelet Count 273 k/uL (150-450); RBC 4.62 m/uL (4.30-5.90); RDW 12.1 % (11.5-15.5); WBC 3.5 k/uL (3.8-10.6)
[2022-12-25 16:44] LABS: Partial Thromboplastin Time 24.5 sec (22.0-30.0); Prothrombin Time 10.3 sec (9.0-12.0)
--- NOTE | 2022-12-25 16:44 | ED ---
Chest Pain HPI - General Chief Complaint: Chest Pain Stated Complaint: Chest Pain Time Seen by Provider: 12/25/22 15:50 Source: patient, EMS Mode of arrival: EMS - History of Present Illness Initial Comments: This patient's 52-year-old man with a couple of complaints today. He states his main complaint is of headache that has been going on for a number weeks to months. He states is intermittent. Left occipital. Usually experiences this in the morning and it clears up later. No fever or chills. No neck stiffness. No neurologic symptoms. In addition the patient has had some chest pain today. MD Complaint: chest pain -: hour(s) Onset: during rest Pain Location: substernal Pain Radiation: none Severity: mild Quality: heaviness Consistency: now resolved Improves With: nothing Worsens With: nothing Treatments Prior to Arrival: none - Related Data Home Medications Medication Instructions Recorded Confirmed No Known Home Medications 12/25/22 12/25/22 Allergies Allergy/AdvReac Type Severity Reaction Status Date / Time No Known Allergies Allergy Verified 12/25/22 16:52 Review of Systems ROS Statement: Those systems with pertinent positive or pertinent negative responses have been documented in the HPI. ROS Other: All systems not noted in ROS Statement are negative. Constitutional: Denies: fever, chills Respiratory: Denies: cough, dyspnea Cardiovascular: Reports: chest pain. Denies: palpitations, orthopnea, edema Gastrointestinal: Denies: abdominal pain, nausea, vomiting, diarrhea, constipation Genitourinary: Denies: dysuria, hematuria Musculoskeletal: Denies: back pain Skin: Denies: rash Neurological: Reports: as per HPI, headache. Denies: weakness, numbness, paresthesias, confusion EKG Findings - EKG Results: EKG: interpreted by ERMD, sinus rhythm (Rate 98 bpm), normal axis, normal QRS - Blocks, [place], Hypertrophy, ST Abn: Repolarization changes or abnormalities: nonspecific abnormality, ST segment, and/or T wave Past Medical History Past Medical History: Coronary Artery Disease (CAD), Chest Pain / Angina, Myocardial Infarction (CT) Additional Past Medical History / Comment(s): chronic back pain Last Myocardial Infarction Date:: 05/29/15 History of Any Multi-Drug Resistant Organisms: None Reported Past Surgical History: Heart Catheterization With Stent, Orthopedic Surgery Additional Past Surgical History / Comment(s): 05/29/15 PTCA with stent to LAD with angeoseal. 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 Past Anesthesia/Blood Transfusion Reactions: No Reported Reaction Date of Last Stent Placement:: 05/29/15 Past Psychological History: Anxiety Smoking Status: Current every day smoker Past Alcohol Use History: Occasional Past Drug Use History: None Reported, Marijuana - Past Family History Father Family Medical History: Coronary Artery Disease (CAD), Myocardial Infarction ([place]) Additional Family Medical History / Comment(s): Father has 2 coronary stents. Mother History Unknown: Yes General Exam General appearance: alert, in no apparent distress Head exam: Present: atraumatic, normocephalic Eye exam: Present: normal appearance. Absent: scleral icterus, conjunctival injection Neck exam: Present: normal inspection, full ROM Respiratory exam: Present: normal lung sounds bilaterally. Absent: respiratory distress, wheezes, rales, rhonchi, stridor Cardiovascular Exam: Present: regular rate, normal rhythm, normal heart sounds. Absent: systolic murmur, diastolic murmur, rubs, gallop GI/Abdominal exam: Present: soft. Absent: distended, tenderness, guarding, rebound Extremities exam: Present: normal inspection, normal capillary refill. Absent: pedal edema, calf tenderness Back exam: Present: normal inspection. Absent: CVA tenderness (R), CVA tenderness (L) Neurological exam: Present: alert, oriented X3, CN II-XII intact. Absent: motor sensory deficit Skin exam: Present: warm, dry, intact, normal color. Absent: rash Course Vital Signs 12/25/22 12/25/22 12/25/22 15:41 20:00 20:55 Temperature 98.7 F Pulse Rate 103 H 92 92 Respiratory 18 18 14 Rate Blood Pressure 120/90 120/90 107/78 O2 Sat by Pulse 95 95 95 Oximetry Chest [facility] Patient is 52-year-old man presenting with 2 complaints, mainly headache but also some associated chest pain today. The patient is sent for CT of the brain which I interpreted as not showing any acute bony injury or any intracranial hemorrhage. The patient had chest x-ray which I interpreted as not showing acute infiltrate, and just of heart failure, or pneumothorax. I discussed results with the patient following the studies. The patient did experience relief of symptoms following medications for headache, and states he would like to go home. Given his history of previous coronary disease we'll have the patient follow with cardiology. He understands she is to return here should any symptoms recur. We discussed smoking cessation Was pt. sent in by a medical professional or institution (, [facility], JOB SETTER, urgent care, hospital, or snf...) When possible be specific @ -[No] Did you speak to anyone other than the patient for history (EMS, parent, family, police, friend...)? What history was obtained from this source @ -[No] Did you review nursing and triage notes (agree or disagree)? Why? @ -[I reviewed and agree with nursing and triage notes] Were old charts reviewed (outside hosp., previous admission, EMS record, old EKG, old radiological studies, urgent care reports/EKG's, snf records)? Report findings @ -[old charts were reviewed] Differential Diagnosis (chest pain, altered mental status, abdominal pain women, abdominal pain men, vaginal bleeding, weakness, fever, dyspnea, syncope, headache, dizziness, GI bleed, back pain, seizure, CVA, palpatations, mental health, musculoskeletal)? @ -[Differential Headache: Migraine, tension, cluster, carbon monoxide, central venous thrombosis, pension karma temporal arteritis, acute closure glaucoma, intercranial hemorrhage, mastoiditis, sinusitis, head injury, this is not meant to be an all-inclusive list. Differential Chest Pain: Stable Angina, Unstable Angina, STEMI, NSTEMI Aortic Dissection, Pneumothorax, Musculoskeletal, Esophageal Spasm GERD, Cholecystitis, Pancreatitis, Zoster, this is not meant to be an all-inclusive list. EKG interpreted by me (3pts min.). @ -[As above] X-rays interpreted by me (1pt min.). @ -[N as above CT interpreted by me (1pt min.). @ -[As above U/S interpreted by me (1pt. min.). @ -[None done] What testing was considered but not performed or refused? (CT, X-rays, U/S, labs)? Why? @ -[None] What meds were considered but not given or refused? Why? @ -[None] Did you discuss the management of the patient with other professionals (professionals i.e. , PA, JOB SETTER, lab, RT, psych nurse, manager social, phlebotomy director, teacher, armoured corps officer, leather case finisher)? Give summary @ -[No] Was smoking cessation discussed for >3mins.? @ -[Yes Was critical care preformed (if so, how long)? @ -[No] Were there social determinants of health that impacted care today? How? (Homelessness, low income, unemployed, alcoholism, drug addiction, transportation, low edu. Level, literacy, decrease access to med. care, [facility], rehab)? @ -[No] Was there de-escalation of care discussed even if they declined (Discuss DNR or withdrawal of care, Hospice)? DNR status @ -[No] What co-morbidities impacted this encounter? (DM, HTN, Smoking, COPD, CAD, Cancer, CVA, ARF, Chemo, Hep., AIDS, mental health diagnosis, sleep apnea, morbid obesity)? @ -[None] Was patient admitted / discharged? Hospital course, mention meds given and route, prescriptions, significant lab abnormalities, going to OR and other pertinent info. @ -[Patient discharged with close follow-up to cardiology and also recommended neurology follow-up Undiagnosed new problem with uncertain prognosis? @ -[No] Drug Therapy requiring intensive monitoring for toxicity (Heparin, Nitro, Insulin, Cardizem)? @ -[No] Were any procedures done? @ -[No] Diagnosis/symptom? @ -[1. Acute headache 2. Acute chest pain Acute, or Chronic, or Acute on Chronic? @ -[default] Uncomplicated (without systemic symptoms) or Complicated (systemic symptoms)? @ -[Uncomplicated Side effects of treatment? @ -[No] Exacerbation, Progression, or Severe Exacerbation? @ -[No] Poses a threat to life or bodily function? How? (Chest pain, [place], CT, pneumonia, PE, COPD, DKA, ARF, appy, cholecystitis, CVA, Diverticulitis, Homicidal, Suicidal, threat to staff... and all critical care pts) @ -[No] Disposition Clinical Impression: Chest pain, Headache Disposition: HOME SELF-CARE Condition: Good Instructions (If sedation given, give patient instructions): Chest Pain (ED), Acute Headache (ED) Is patient prescribed a controlled substance at d/c from ED?: No Referrals: Meghan Montano MD [Primary Care Provider] - 1-2 days Basilio Pelaez MD [STAFF PHYSICIAN] - 1-2 days
[2022-12-25 16:53] LABS: ALT 26 U/L (4-49); AST 27 U/L (17-59); African American GFR (CKD) >90 (>60 ml/min/1.73 sqM); Alkaline Phosphatase 84 U/L (38-126); Amylase 56 U/L (30-110); Anion Gap 8 mmol/L; Blood Urea Nitrogen 6 mg/dL (9-20); Carbon Dioxide 23 mmol/L (22-30); Chloride 105 mmol/L (98-107); Glucose 95 mg/dL (74-99); Lipase 65 U/L (23-300); Magnesium 2.1 mg/dL (1.6-2.3); Non-African American GFR(CKD) >90 (>60 ml/min/1.73 sqM); Potassium 3.8 mmol/L (3.5-5.1); Sodium 136 mmol/L (137-145); Total Bilirubin 0.4 mg/dL (0.2-1.3); Total Protein 6.8 g/dL (6.3-8.2)
[2022-12-25 17:13] LABS: Calcium 8.6 mg/dL (8.4-10.2)
--- NOTE | 2022-12-25 17:40 | XR ---
EXAMINATION TYPE: XR chest 1V portable DATE OF EXAM: 12/25/2022 COMPARISON: 03/20/2022 HISTORY: Chest pain TECHNIQUE: Single view FINDINGS: Heart is normal. Lungs are clear. Diaphragm is normal. Bony thorax is intact. There are derick st leads. IMPRESSION: Normal chest. No adverse change.
--- NOTE | 2022-12-25 17:51 | CT ---
EXAMINATION TYPE: CT brain wo con DATE OF EXAM: 12/25/2022 COMPARISON: 04/21/2017 HISTORY: headache CT DLP: 1216.4 mGycm Automated exposure control for dose reduction was used. Images of the brain obtained with no contrast Ventricles have normal size. There is no mass effect or midline shift. No sign of intracranial hemorr landon. No evidence of cerebral edema. There is normal aeration of the mastoid sinuses. Sella turcica i s normal. IMPRESSION: Negative unenhanced head CT scan. No change.
[2022-12-25] MEDS ORDERED: METOCLOPRAMIDE 5 MG/ML 2 ML VIAL IVP STA (18:45)
[2022-12-25] MEDS ORDERED: KETOROLAC 15 MG/ML 1 ML VIAL IVP STA (18:45)
[2022-12-25] MEDS ORDERED: diphenhydrAMINE 50 MG/ML 1 ML VIAL IVP STA (18:45)
[2022-12-25 20:00] VITALS: PULSE 92
[2022-12-25 20:59] VITALS: BP 107/78; RESP 14
== END 2022-12-25 21:20 | disposition home or self-care (01) ==
LOC: EC 15:34
DX: R07.89 Other chest pain (principal); R51.9 Headache, unspecified; I25.10 Atherosclerotic heart disease of native coronary artery without angina pectoris; I25.2 Old myocardial infarction; F41.9 Anxiety disorder, unspecified; F17.200 Nicotine dependence, unspecified, uncomplicated
CPT/HCPCS: 36415; 93005; 85379; 80053; 82150; 83690; 83735; 84484; 85025; 85610; 85730; 71045; 70450; 99285; 96374; 96375 ×2; J1200; J2765; J1885

== ENCOUNTER 2023-01-02 01:50 | Emergency (ER) | payer OTHER ==
--- NOTE | 2023-01-02 02:16 | ED ---
General Adult HPI - General Chief complaint: Cardiac Arrest/CPR Stated complaint: Cardiac Arrest Source: EMS, RN notes reviewed, old records reviewed Mode of arrival: EMS - History of Present Illness Initial comments: Patient is a 52-year-old male with past medical history remarkable for CAD, cardiac stents, who presents emergency Department as an active cardiac arrest. Total down time at the patient's home per EMS is unknown but they estimate 5-10 minutes prior to their arrival. No CPR was done. When they arrived, patient was pulseless. Per family who is at the scene, they informed EMS that patient had been complaining of shortness of breath for 2 days. They arrived at the patient's home at approximately 1:20 AM. They found the patient was pulseless and immediately started resuscitation. Patient was intubated in the field. Patient was given a total of 5 epinephrines, shocked 5 times for refractory V. fib, and given 300 mg of IV amiodarone. Patient was transferred here for further management. They never obtained return of spontaneous circulation. Total downtime prior to arrival was at least 28 minutes for EMS, likely at least 35 minutes as the patient was pulseless for approximately 5-10 minutes prior to arrival. Patient arrives as an active cardiac arrest. - Related Data Home Medications Medication Instructions Recorded Confirmed No Known Home Medications 12/25/22 12/25/22 Allergies Allergy/AdvReac Type Severity Reaction Status Date / Time No Known Allergies Allergy Verified 12/25/22 16:52 Review of Systems ROS Statement: Those systems with pertinent positive or pertinent negative responses have been documented in the HPI. ROS Other: All systems not noted in ROS Statement are negative. Past Medical History Past Medical History: Coronary Artery Disease (CAD), Chest Pain / Angina, Myocardial Infarction (DE) Additional Past Medical History / Comment(s): chronic back pain Last Myocardial Infarction Date:: 05/29/15 History of Any Multi-Drug Resistant Organisms: None Reported Past Surgical History: Heart Catheterization With Stent, Orthopedic Surgery Additional Past Surgical History / Comment(s): 05/29/15 PTCA with stent to LAD with angeoseal. 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 Past Anesthesia/Blood Transfusion Reactions: No Reported Reaction Date of Last Stent Placement:: 05/29/15 Past Psychological History: Anxiety Smoking Status: Current every day smoker Past Alcohol Use History: Occasional Past Drug Use History: None Reported, Marijuana - Past Family History Father Family Medical History: Coronary Artery Disease (CAD), Myocardial Infarction ([place]) Additional Family Medical History / Comment(s): Father has 2 coronary stents. Mother History Unknown: Yes General Exam - General Exam Comments Initial Comments: General: Unresponsive, cardiac arrest HEAD: Normal with no signs of head trauma. EYES: Pupils Are 3 mm and fixed. ENT: Trachea is midline. ET tube is in place. RESPIRATORY: Equal breath sounds bilaterally being ventilated with a bag valve mask. C/V: Refractory V. fib on the monitor. Pulseless. ABD: Nondistended EXT: No obvious deformity SKIN: No rashes or lesions observed on exposed skin. NEURO: Unresponsive Medical Decision Making - Medical Decision Making Was pt. sent in by a medical professional or institution (Dr. PA, KIDS ACTIVITIES COACH, urgent care, hospital, or skilled nursing...) When possible be specific @ -No Did you speak to anyone other than the patient for history (EMS, parent, family, police, friend...)? What history was obtained from this source @ -EMS provided the patient's history. Did you review nursing and triage notes (agree or disagree)? Why? @ -I reviewed and agree with nursing and triage notes Were old charts reviewed (outside hosp., previous admission, EMS record, old EKG, old radiological studies, urgent care reports/EKG's, skilled nursing records)? Report findings @ -Yes, old charts reviewed including recent visit from December 2022. Differential Diagnosis (chest pain, altered mental status, abdominal pain women, abdominal pain men, vaginal bleeding, weakness, fever, dyspnea, syncope, headache, dizziness, GI bleed, back pain, seizure, CVA, palpatations, mental health, musculoskeletal)? @ -Cardiac arrest, likely abnormality, overdose, heart attack, STEMI, ACS, PE, refractory V. fib. This list is not all inclusive. EKG interpreted by me (3pts min.). @ -None done X-rays interpreted by me (1pt min.). @ -None done CT interpreted by me (1pt min.). @ -None done U/S interpreted by me (1pt. min.). @ -None done What testing was considered but not performed or refused? (CT, X-rays, U/S, labs)? Why? @ -None What meds were considered but not given or refused? Why? @ -None Did you discuss the management of the patient with other professionals (professionals i.e. , PA, KIDS ACTIVITIES COACH, lab, RT, psych nurse, social sciences professor, washtub worker, teacher, animal park code enforcement officer, window caser)? Give summary @ -No Was smoking cessation discussed for >3mins.? @ -No Was critical care preformed (if so, how long)? @ -Yes, 32 min Were there social determinants of health that impacted care today? How? (Homelessness, low income, unemployed, alcoholism, drug addiction, transportation, low edu. Level, literacy, decrease access to med. care, fci, rehab)? @ -No Was there de-escalation of care discussed even if they declined (Discuss DNR or withdrawal of care, Hospice)? DNR status @ -No What co-morbidities impacted this encounter? (DM, HTN, Smoking, COPD, CAD, Cancer, CVA, ARF, Chemo, Hep., AIDS, mental health diagnosis, sleep apnea, morbid obesity)? @ -None Was patient admitted / discharged? Hospital course, mention meds given and route, prescriptions, significant lab abnormalities, going to OR and other pertinent info. @ -Based on the patient's presentation and physical exam, he presents in active cardiopulmonary arrest. Patient was intubated in the field. Has received a total of 5 defibrillations as well as 5 epinephrines for refractory V. fib. ACLS protocol was continued here. He received 300 mg of amiodarone in the field and he will receive an additional 150 mg here. Patient arrived at approximately 1:48 AM. Patient received 2 epinephrines, 1 amp bicarb, one amp calcium. Sugar by EMS was within acceptable limits. He received an additional 3 difibrillations at 150J then 200J x2. After discussion with resuscitation team, we all agreed that if the patient has a total down time of approximately at least 36 minutes at this time, likely longer his patient was unresponsive for family at home for an additional 5-10 minutes, that resuscitation will be stopped. Patient has received a total of 7 epinephrines, with multiple defibrillations for refractory V. fib with no change in status. Time of was called at 1:56 AM. Patient was completely undressed and there was no signs of traumatic injury or foul play. I notified the medical technologist. We attempted to contact the patient's PCP, Dr. Montano and left a voicemail. We are waiting for him to call back. We contacted patient's significant other, Ani Sanchez who is on her way to the emergency department. Dr. Montano did call back and states he has not seen the patient in years and he does not follow up with appointments. He expressed understanding the patient is . Patient's next of kin, significant other Ani Sanchez presents to the emergency department and I updated her on the patient's . She expressed understanding. Patient apparently was watching TV with a friend when he suddenly fell to the floor and was unresponsive. Otherwise corroborated the remaining of the story. machine cloth examiner called back and contacted me stating that the patient is not released. Patient be held in the morgue. Ms. sanchez was updated of this. Patient is . Undiagnosed new problem with uncertain prognosis? @ -No Drug Therapy requiring intensive monitoring for toxicity (Heparin, Nitro, Insulin, Cardizem)? @ -No Were any procedures done? @ -No Diagnosis/symptom? @ - Refractory ventricular fibrillation Cardiac arrest resulting in Acute, or Chronic, or Acute on Chronic? @ -Acute Uncomplicated (without systemic symptoms) or Complicated (systemic symptoms)? @ -Complicated Side effects of treatment? @ -No Exacerbation, Progression, or Severe Exacerbation? @ -No Poses a threat to life or bodily function? How? (Chest pain, [place], [place], pneumonia, PE, COPD, DKA, ARF, appy, cholecystitis, CVA, Diverticulitis, Homicidal, Suicidal, threat to staff... and all critical care pts) @ -Patient has Critical Care Time Critical Care Time: Yes Total Critical Care Time: 32 Critical Care Time: Upon my evaluation, this patient had a high probability of imminent or life- threatening deterioration due to ventricular fibrillation, refractory, cardiac arrest and , which required my direct attention, intervention, and personal management. I have personally provided 32 minutes of critical care time exclusive of time spent on separately billable procedures. Time includes review of laboratory data, radiology results, discussion with consultants, and monitoring for potential decompensation. Interventions were performed as documented in my note. Disposition Clinical Impression: Cardiac arrest, Sustained ventricular fibrillation, Disposition: Referrals: Meghan Montano MD [Primary Care Provider] - 1-2 days Time of Disposition: 02:00 Preliminary Cause of : cardiac arrest
== END 2023-01-02 03:00 | disposition expired ==
LOC: EC 01:50
DX: I46.9 Cardiac arrest, cause unspecified (principal); I49.01 Ventricular fibrillation; I25.10 Atherosclerotic heart disease of native coronary artery without angina pectoris; I25.2 Old myocardial infarction; F17.200 Nicotine dependence, unspecified, uncomplicated; F12.90 Cannabis use, unspecified, uncomplicated; Z95.5 Presence of coronary angioplasty implant and graft
CPT/HCPCS: 92960; 99291